=== PATIENT | female | born 1965 | race Caucasian/White ===

== ENCOUNTER 2024-02-05 08:07 | Emergency (ER) | payer SELFPAY ==
[2024-02-05 08:11] VITALS: BP 169/102; PULSE 53; RESP 16; O2SAT 95
--- NOTE | 2024-02-05 08:15 | DI.CT_ITS ---
Exam(s) CT HEAD CERVICAL SPINE WO EXAM: CT HEAD CERVICAL SPINE WO CLINICAL HISTORY: left sided head/neck pain s/p fall. TECHNIQUE: Imaging Protocol: Axial computed tomography images with coronal and sagittal reformatted images were created and reviewed COMPARISON: No exams were available for comparison FINDINGS: CT Head: Ventricles and Extra axial spaces: Normal in size and morphology for the patient's age. Hemorrhage: None. Cerebral parenchyma: No evidence of an acute territorial infarct. No mass effect is identified. Midline shift: None. Brainstem/Cerebellum: Normal. Calvarium: Normal. Visualized Paranasal sinuses/Mastoids: There is near complete opacification of the right maxillary si nus. The remaining visualized paranasal sinuses and mastoid air cells are clear. Soft Tissues: Unremarkable. CT Cervical Spine: Bones: No acute fracture or subluxation. Age-appropriate degenerative changes are seen in the cervica l spine. Soft Tissues: Unremarkable. Lung Apices: Clear. IMPRESSION: 1. No acute intracranial process. 2. No acute fracture or subluxation in the cervical spine. RADIATION DOSE DELIVERED: 1,357.92mGy.cm Total DLP DATA REPOSITORY: All CT scans at this facility are submitted to the National Radiology Data Registry (NRDR) Dose Index Registry (DIR) with the [employer] (ACR). RADIATION OPTIMIZATION: All CT scans at this facility use at least one of these dose optimization te chniques: automated exposure control; mA and/or kV adjustment per patient size (includes targeted exa ms where dose is matched to clinical indication); or iterative reconstruction.
--- NOTE | 2024-02-05 08:27 | ED.GENADUL_ITS ---
Discharge Plan Disposition Patient Disposition: Home Condition: Stable Discharge Details Clinical Impression: Contusion of rib, Cervical strain, Blunt head trauma, Closed fracture of phalanx of right little finger Primary Care Provider: Unknown,Unknown ED Provider: Waylon Rosenbaum Home Meds and New Rx's Prescriptions: Continued sertraline [Zoloft] 100 mg tablet 100 mg PO DAILY oxcarbazepine [Trileptal] 300 mg tablet 300 mg PO ONCE omeprazole 40 mg capsule,delayed release(DR/EC) 40 mg PO DAILY zinc 10 mg tablet 10 mg PO DAILY B-complex with vitamin C Tablet 1 tab PO DAILY Discharge Instructions Additional Instructions: If still having pain in the chest and neck in a week follow up with your primary care provider Call orthopedics to arrange for follow-up appointment You can take 1000 mg of acetaminophen and 600 mg of ibuprofen every 6 hours as needed If you feel more ill or have severe worsening pain or new symptoms such as severe abdominal pain return to the emergency department for reevaluation Referrals: Nithin Lombardo MD [ [facility] STAFF PHYSICIAN] - [facility] General Mode of arrival: ambulatory . Date/Time Provider Initiated Documentation: 02/05/24 08:08 . Limitations to Documentation: no limitations . Information obtained by: patient . History of Present Illness 58 year old F presents to the emergency department with the chief complaint of Fall out of b ed, described as moderate, and is localized to the head, neck, chest, right and upper extremity. Patient started experiencing this hour(s) (1) and it has been constant. No relieving factors improve symptom(s), No exacerbating factors reported . Patient notes denies fever/chills and shortness of breath. Patient did receive the following treatments prior to arrival, none Related Data Home Medications ?Medication ?Instructions ?Recorded ?Confirmed B-complex with vitamin C 1 tab PO DAILY 02/05/24 02/05/24 omeprazole 40 mg capsule,delayed 40 mg PO DAILY 02/05/24 02/05/24 release oxcarbazepine 300 mg tablet 300 mg PO ONCE 02/05/24 02/05/24 (Trileptal) sertraline 100 mg tablet (Zoloft) 100 mg PO DAILY 02/05/24 02/05/24 zinc 10 mg tablet 10 mg PO DAILY 02/05/24 02/05/24 Allergies Allergy/AdvReac Type Severity Reaction Status Date / Time No Known Allergies Allergy Unverified 02/05/24 08:14 General Stated Complaint: Trauma TOM: 3 Review of Systems All systems reviewed & are unremarkable except as noted in HPI and below Constitutional Constitutional: Denies chills, Denies fever(s) and Denies weakness Cardiovascular Cardiovascular: Reports chest pain (s/p fall) and Denies dyspnea Respiratory Respiratory: Denies cough and Denies dyspnea Gastrointestinal Gastrointestinal: Denies abdominal pain, Denies nausea and Denies vomiting Neurologic Neurologic: Denies weakness Exam Const General: no acute distress Orientation: alert HENMT Head: normal to inspection Ears: external ears normal General nose exam: external nose normal Mouth: moist mucous membranes Eyes General: appearance normal, both eyes and all related structures Neck Neck: normal visual inspection, no lymphadenopathy, trachea midline and no JVD Chest Chest: tenderness Resp Effort & Inspection: normal respiratory effort and able to speak in complete sentences Auscultation: clear to auscultation bilaterally Cardio Rate: regular rate Heart Sounds: no murmurs GI Palpation: soft and nontender Skin General skin exam: no rashes or lesions noted Neuro General: patient alert and patient oriented x3 Extrem General: normal to inspection Psych Mental Status: mental status grossly normal Course Vital Signs Vital signs: Vital Signs Pulse 53 L 02/05/24 08:11 Respiratory Rate 16 02/05/24 08:11 Blood Pressure 169/102 H 02/05/24 08:11 Pulse Oximetry 95 02/05/24 08:11 Pulse 53 L 02/05/24 08:11 Respiratory Rate 16 02/05/24 08:11 Respiratory Effort Normal 02/05/24 08:14 Blood Pressure 169/102 H 02/05/24 08:11 Blood Pressure Position Sitting 02/05/24 08:11 Pulse Oximetry 95 02/05/24 08:11 Oxygen Delivery Method Room Air 02/05/24 08:11 Oxygen Flow Rate 0 02/05/24 08:11 Pain Level 10 02/05/24 08:11 Medical Decision Making 58-year-old female comes in after she fell to bed. She says she was having a bed with a 6-year-old female member who accidentally knocked her out of the bed. She denies loss of consciousness or vomiting. She has left-sided head pain and neck pain since the fall. Also has left anterior chest tenderness. She also notes right little finger pain. She has no abdominal pain, no back pain. She is alert and oriented x 4 on arrival and ambulatory with a normal gait. She has no pain in her lower extremities. She has no signs of trauma to the head. She has tenderness over the left upper anterior chest. No crepitus, clear lung sounds. She has left lateral neck tenderness, no midline C-spine, T-spine or L- spine tenderness. No abdominal tenderness. Her right pinky is tender just distal to the PIP joint. She has full range of motion of the finger. Intact sensation and pulses. No tenderness in the rest of the hand or wrist. Suspect she has contusions but given her pain will obtain CT head and C-spine. Will also obtain a chest x-ray to evaluate for rib fracture. Will also obtain right pinky x-ray. CT head and C-spine on my review read read as negative for acute findings. X- ray of the chest shows no acute findings, vRad report does show a nondisplaced fracture of the pinky. She has no midline C-spine tenderness so do not feel any further imaging of her neck is indicated. She has full range of motion of her neck without any pain. She will follow-up with her PCP if not better within a week and return precautions given. For her finger I am going to provide her a finger splint and f/u with ortho. Differential Diagnosis Differential Diagnosis: Contusion, fracture, TBI Quality:SDOH Health Related Social Needs: No Data to Display [facility] All Active Problems (Updated 02/05/24 @ 09:58 by Waylon Rosenbaum MD) Closed fracture of phalanx of right little finger (Acute) Blunt head trauma (Acute) Cervical strain (Acute) Contusion of rib (Acute) Social History Smoking/Tobacco Use Status: Never Smoking risk assessment performed?: Yes Alcohol Intake: current Drug use: Daily Substance use type: marijuana Housing: house [employer] Have you Been Recently Intoxicated or Drunk Within the Last 30 days?: No Have you Ever Experienced Previous Episodes of Alcohol Withdrawal?: No Have you ever Experienced Withdrawal Seizures?: No Have you ever Experienced Delirium Tremens(DT)s?: No Have you ever undergone Alcohol Rehabilitation Treatment (i.e, inpt ot outpatient treatment programs)?: No Have you ever Experienced Blackouts?: No Have you ever Combined Alcohol with other Downers within the last 90 days?: No Have you ever Combined Alcohol with any other Substance of Abuse during the last 90 days?: No Result: 0
--- NOTE | 2024-02-05 09:02 | DI.RAD_ITS ---
Exam(s) XR FINGER RT LITTLE EXAM: XR FINGER RT LITTLE CLINICAL HISTORY: pain s/p fall. TECHNIQUE: 2D digital imaging was performed of the right finger. Three views were obtained. PA/AP, oblique, and lateral views were obtained. COMPARISON: No exams were available for comparison FINDINGS: BONES: There is an acute nondisplaced fracture through the proximal metaphysis of the distal phalanx of the right little finger. The fracture does not extend into the joint space. No bony destructive lesion is seen. JOINTS: No dislocation present. SOFT TISSUE: There is soft tissue swelling of the finger. No radiopaque foreign bodies are seen. IMPRESSION: Acute nondisplaced fracture through the proximal metaphyseal region of the distal phalanx of the righ t little finger. DATA REPOSITORY: RADIATION DOSE DELIVERED:
--- NOTE | 2024-02-05 09:02 | DI.RAD_ITS ---
Exam(s) XR CHEST 2V PA LATERAL EXAM: XR CHEST 2V PA LATERAL CLINICAL HISTORY: left sided chest pain s/p fall TECHNIQUE: 2D digital imaging was performed of the chest. Two images were obtained. PA and lateral views were obtained. COMPARISON: No exams were available for comparison FINDINGS: MEDIASTINUM: Normal. HEART: Normal. PULMONARY VASCULATURE: Normal. LUNGS: Clear. PLEURAL SPACE: No pleural effusion or pneumothorax. BONE:Within normal limits for the patient's age. There is mild right convex curvature of the thoraci c spine. No acute fractures are seen in the thoracic spine. There is mild anterior wedging of verte bral bodies at the thoraco lumbar junction which appear chronic OTHER FINDINGS:Normal. IMPRESSION: No acute pulmonary findings. DATA REPOSITORY: RADIATION DOSE DELIVERED:
--- NOTE | 2024-02-05 09:35 | DI.VRAD_ITS ---
PROCEDURE INFORMATION: Exam: CT Head Without Contrast Exam date and time: 02/05/2024 8:41 AM Age: 58 years old Clinical indication: Injury or trauma; Fall; Blunt trauma (contusions or hematomas); Consciousness not specified TECHNIQUE: Imaging protocol: Computed tomography of the head without contrast. COMPARISON: No relevant prior studies available. FINDINGS: Brain: There is no acute infarct, intracranial bleed or mass effect. There is mineralization of bilateral basal ganglia, age-related. Cerebral ventricles: No ventriculomegaly. Paranasal sinuses: Mucosal disease of the bilateral maxillary sinuses. Mastoid air cells: Visualized mastoid air cells are well aerated. Bones: Unremarkable. No acute fracture. Soft tissues: Unremarkable. IMPRESSION: No acute intracranial posttraumatic changes. PROCEDURE INFORMATION: Exam: CT Cervical Spine Without Contrast Exam date and time: 02/05/2024 8:41 AM Age: 58 years old Clinical indication: Injury or trauma; Fall; Blunt trauma (contusions or hematomas); Consciousness not specified TECHNIQUE: Imaging protocol: Computed tomography of the cervical spine without contrast. COMPARISON: No relevant prior studies available. FINDINGS: Bones: Mild posterior osteophyte disc complex at C5-C6 and C6-C7 with mild bony canal stenosis. Chronic fracture of the spinous process of T1. No compression deformity vertebral bodies. No acute fracture. No spondylolisthesis. Lungs: Lung apices are normal. Soft tissues: Unremarkable. IMPRESSION: No acute posttraumatic changes in the cervical spine. Dictated and Authenticated by: Darnell Melendez MD. Ordering:SANEDE Connors MD
--- NOTE | 2024-02-05 09:46 | DI.VRAD_ITS ---
PROCEDURE INFORMATION: Exam: XR Chest Exam date and time: 02/05/2024 8:54 AM Age: 58 years old Clinical indication: Injury or trauma; Fall; Other: Pain TECHNIQUE: Imaging protocol: Radiologic exam of the chest. Views: 2 views. COMPARISON: CT HEAD CERVICAL SPINE WO 02/05/2024 8:41 AM FINDINGS: Lungs: Unremarkable. No consolidation. Pleural spaces: Unremarkable. No pleural effusion. No pneumothorax. Heart/Mediastinum: Unremarkable. No cardiomegaly. Vasculature: Unfolding of the thoracic aorta. Bones/joints: Moderate degenerative bilateral acromioclavicular joints. Mild increased kyphosis of the lower thoracic spine with mild loss of height of the thoracolumbar junction vertebral bodies. Mild curvature of the thoracolumbar spine convex to the right. IMPRESSION: No acute cardiopulmonary process. Dictated and Authenticated by: Darnell Melendez MD. Ordering:SANDEE Connors MD
--- NOTE | 2024-02-05 09:49 | DI.VRAD_ITS ---
PROCEDURE INFORMATION: Exam: XR right Finger(s) Exam date and time: 02/05/2024 8:57 AM Age: 58 years old Clinical indication: Pain; Finger(s); Right TECHNIQUE: Imaging protocol: Radiologic exam of the left fingers. Views: Minimum 2 views. COMPARISON: No relevant prior studies available. FINDINGS: Bones/joints: Demineralization of the visualized bones. There is a transverse nondisplaced fracture of the proximal aspect of the phalanx of the small finger with no definite intra-articular extension. Soft tissues: Normal. IMPRESSION: Transverse fracture of the distal phalanx of the small finger with no intra-articular extension. Dictated and Authenticated by: Darnell Melendez MD. Ordering:SANDEE Connors MD
[2024-02-05 10:16] VITALS: BP 158/86; PULSE 49; RESP 16; O2SAT 98
== END 2024-02-05 10:18 | disposition home or self-care (01) ==
PROVIDERS: Emergency Provider Emergency Medicine
DX: S62.666A Nondisplaced fracture of distal phalanx of right little finger, initial encounter for closed fracture (principal); S16.1XXA Strain of muscle, fascia and tendon at neck level, initial encounter; S00.83XA Contusion of other part of head, initial encounter; R07.89 Other chest pain; W06.XXXA Fall from bed, initial encounter
CPT/HCPCS: 26720; 99284; 70450; 71046; 72125; 73140; 99283

== ENCOUNTER 2024-02-18 22:29 | Emergency (ER) | payer SELFPAY ==
[2024-02-18] VITALS (14 sets, daily range): BP systolic 125–155; BP diastolic 61–76; PULSE 51–80; RESP 0–25; TEMP 36.4; O2SAT 90–99
--- NOTE | 2024-02-18 22:30 | RT.EKG_ITS ---
APPROVED REPORT Exam: Resting ECG Reason for Exam: AMS Patient Location: E HR:51 bpm ECG Measurements Heart Rate 51 AXIS MN 221 P 65 QRSd 127 QRS -28 QT 516 T 46 QTc 477 Conclusion Sinus bradycardia...rate< 60 Prolonged MN interval...MN >210, V-rate 50- 90 IVCD, consider LBBB...QRSd>120, notch/slur R I aVL V5-[address] segment or T wave abnormalities to suggest occlusive AL
--- NOTE | 2024-02-18 22:30 | RT.EKG_ITS ---
APPROVED REPORT Exam: Resting ECG Reason for Exam: ams Patient Location: E HR:51 bpm ECG Measurements Heart Rate 51 AXIS TN 222 P 50 QRSd 125 QRS -31 QT 505 T 90 QTc 463 Conclusion Sinus bradycardia...rate< 60 Prolonged TN interval...TN >210, V-rate 50- 90 Slight QRS widening @[address] segment or T wave abnormalities to suggest occlusive CO
--- NOTE | 2024-02-18 22:58 | ED.GENADUL_ITS ---
Discharge Plan Disposition Patient Disposition: Home Condition: Good Discharge Details Clinical Impression: Alcohol intoxication, Altered mental status, Acute hypokalemia, Acidosis, lactic Primary Care Provider: Unknown,Unknown ED Provider: Adele Faulkner Home Meds and New Rx's Prescriptions: Continued sertraline [Zoloft] 100 mg tablet 100 mg PO DAILY oxcarbazepine [Trileptal] 300 mg tablet 300 mg PO ONCE omeprazole 40 mg capsule,delayed release(DR/EC) 40 mg PO DAILY zinc 10 mg tablet 10 mg PO DAILY B-complex with vitamin C Tablet 1 tab PO DAILY Discharge Instructions Instructions: Hypokalemia, Alcohol Intoxication ED Additional Instructions: Call your primary care doctor today to schedule an appointment to be seen within the next 72 hours to followup on your visit here. At that appointment discuss your potassium which was low here today, your EKG which showed some changes, and your toxicology results which are not back yet. Return to the emergency department for new or worsening symptoms, including altered mental status, numbness, weakness, vertigo, vision changes, chest pain, shortness of breath, feeling like you are going to pass out, or if you have any other concerns. HPI General Mode of arrival: EMS . Date/Time Provider Initiated Documentation: 02/18/24 22:37 . Limitations to Documentation: no limitations . Information obtained by: patient, family and EMS . HPI Narrative: 58yo F with hx of depression and anxiety presenting for altered mental status. [facility], reports drinking 2 vodka drinks as well as smoking weed; states this is not unusual for her. Came home and per family was initially crying and seemed agitated, then became less responsive. For EMS she was responsive to painful stimuli, moving all 4 extremities, blood glucose and vital signs normal. Patient and family concerned that someone may have tampered with her drink. Patient denies any other ingestions or changes in medications. She reports feeling funny all over, denies focal numbness or weakness. No headache, nausea, vomiting, vision changes, or vertigo. No chest pain, syncope, or shortness of breath. She is otherwise in her usual state of health with no fevers, chills, rash, abdominal pain, dysuria, hematuria, recent head injuries, or other concerns. Related Data Home Medications ?Medication ?Instructions ?Recorded ?Confirmed B-complex with vitamin C 1 tab PO DAILY 02/05/24 02/18/24 omeprazole 40 mg capsule,delayed 40 mg PO DAILY 02/05/24 02/18/24 release oxcarbazepine 300 mg tablet 300 mg PO ONCE 02/05/24 02/18/24 (Trileptal) sertraline 100 mg tablet (Zoloft) 100 mg PO DAILY 02/05/24 02/18/24 zinc 10 mg tablet 10 mg PO DAILY 02/05/24 02/18/24 Allergies Allergy/AdvReac Type Severity Reaction Status Date / Time No Known Allergies Allergy Unverified 02/18/24 22:39 General Stated Complaint: AMS/LOC TOM: 3 Review of Systems Narrative: see HPI Exam Narrative Exam Narrative: General: Eyes closed, well nourished, in no acute distress. Head: Normocephalic, atraumatic Neck: Trachea midline, ?Neck supple. ENT: ?MMM.? No oropharygeal lesions or exudate. Cardiac: ?RRR, no murmurs appreciated Resp: No respiratory distress. CTAB. Abd: ?Soft, non-distended, nontender : ?No suprapubic tenderness. No CVA tenderness. Extremities: ?No deformities.? No peripheral edema. Neuro: ? GCS 14 (E3 V5 M6).? PERRL, mydriasis.? EOMI.? Fluent speech, no dysarthria. Motor- 5/5 strength symmetric bilateral upper and lower extremities Sensation- ?Intact to light touch and symmetric multiple dermatomes including upper and lower extremities Coordination- No dysmetria on finger to nose CRANIAL NERVES: II: Pupils equal and reactive, III, IV, : EOM intact, no gaze preference or deviation, no nystagmus. V: normal sensation in V1, V2, and V3 segments bilaterally VII: no asymmetry, no nasolabial fold flattening VIII: normal hearing to speech IX, X: normal palatal elevation, no uvular deviation XI: 5/5 head turn and 5/5 shoulder shrug bilaterally XII: midline tongue protrusion Course Vital Signs Vital signs: Vital Signs Temperature 36.4 C L 02/18/24 22:32 Pulse 62 02/18/24 22:32 Respiratory Rate 18 02/18/24 22:32 Blood Pressure 125/61 02/18/24 22:32 Pulse Oximetry 94 10/12/24 22:32 Temperature 36.4 C L 02/18/24 22:32 Temperature Source Oral 02/18/24 22:32 Pulse 62 02/18/24 22:32 Respiratory Rate 18 02/18/24 22:39 Respiratory Effort Normal 02/18/24 22:39 Respiratory Depth Normal 02/18/24 22:39 Respiratory Pattern Normal 02/18/24 22:39 Blood Pressure 125/61 02/18/24 22:32 Blood Pressure Position Supine 02/18/24 22:32 Pulse Oximetry 94 02/18/24 22:32 Oxygen Delivery Method Nasal Cannula 02/18/24 22:32 Oxygen Flow Rate 1 02/18/24 22:32 Medical Decision Making 58yo F with hx of depression and anxiety presenting for altered mental status. Was at bar [employer], reports drinking 2 vodka drinks as well as smoking weed; states this is not unusual for her. After returning home was initially crying, then became less responsive so family called EMS. Family states they have never seen her like this before. For EMS she was responsive to painful stimuli, moving all 4 extremities, blood glucose and vital signs normal. On arrival is responsive to loud voice, oriented x 3, GCS 14. Mydriasis on exam, otherwise normal physical and neurologic exam. Patient and family are concerned that someone may have tampered with her drink; patient denies any other ingestions or changes in medications. -Initial EKG SR with 1st degree block, nonspecific IVCD with QRS of 125 (? partial LBBB), no ST segment or T wave abnormalities to suggest occlusive [place]. No prior EKGs available for comparison. -CT head independently reviewed; no intracranial bleed or mass on my view, radiology read below. -Labs reviewed as below, CBC reassuring with no leukocytosis or anemia, CMP with hypokalemia at 3.0 (given 40meQ oral and 20meQ IV) otherwise no actionable abnormalities, Mg normal, TSH normal, salicylate negative, acetaminophen negative, ETOH markedly elevated at 135. Lactate elevated at 2.6 (possibly 2/t to ETOH); given 1L IFVB and repeat improved to 1.5. VBG drawn 1 hour after arrival, pH of 7.3 with bicarb of 15 at that time with compensatory respiratory alkalosis (this may be 2/t to ETOH). Troponin negative x 2; would not further pursue ACS. -UDS + for THC. Rohypnol, GHB, ketamine sent out, patient and family aware results will not be available tonight and they will need to followup with her PCP. -Repeat EKG with no significant changes, QRS ~127. On reassessment patient awake, alert, sitting up in bed and looking at her phone. Vital signs reamin reassuring. Discussed with poison control who agree pt's presentation and lab abnormalities are most likely 2/t ETOH, no further interventions recommended. Repeat labs after completion of IV potassium: VBG improving with bicarb near normal at 23, normal pCO2, pH 7.31. Repeat lactate up to 2.0 which I do believe is 2/t to her ETOH, BMP with potassium of 4.3 and otherwise reassuring, tylenol/salicylate negative. EKG with QRS 107. Discussed again with poison control who agree lab findings including lactate, VBG, not unexpected in the setting of ETOH and not of significant concern, no additional recommendations, no indication for further monitoring. On reassessment patient alert, oriented, ambulates with steady gait. Discharged home; discharge instructions and return precautions were reviewed with patient who verbalized understanding. All questions were answered and she is in full agreement with the plan. Imaging Data Radiologic Study: Imaging: CT Scan Radiologist's impression: IMPRESSION: 1. Incompletely visualized opacification of the right maxillary sinus suggests sinusitis. 2. No acute brain findings Quality:SDOH Health Related Social Needs: No Data to Display [facility] All Active Problems (Updated 02/19/24 @ 03:04 by Adele Faulkner MD) Acidosis, lactic (Acute) Acute hypokalemia (Acute) Altered mental status (Acute) Alcohol intoxication (Acute) Closed fracture of phalanx of right little finger (Acute) Blunt head trauma (Acute) Cervical strain (Acute) Contusion of rib (Acute) Social History Smoking/Tobacco Use Status: Never Smoking risk assessment performed?: Yes Alcohol Intake: current Drug use: Daily Substance use type: marijuana Housing: house
[2024-02-18 23:06] LABS: Abs Immature Grans 0.02 10^3/uL (0.0-0.06); Absolute Basophil Count 0.04 10^3/uL (0.0-0.2); Absolute Eosinophil Count 0.14 10^3/uL (0.0-0.7); Absolute Lymphocyte Count 2.59 10^3/uL (1.2-3.4); Absolute Monocyte Count 0.34 10^3/uL (0.1-0.8); Absolute Neutrophil Count 4.27 10^3/uL (1.2-6.7); Basophils % 0.5 %; Eosinophils % 1.9 %; HCT 37.3 % (36.0-46.0); Immature Grans % 0.3 %; Lactate 2.6 mmol/L (0.6-1.4); MCH 27.5 pg (27.0-33.0); MCHC 32.2 % (32.0-36.0); MCV 86 fL (80-95); MPV 9.8 fL (8.0-11.0); Monocytes % 4.6 %; Neutrophils % 57.7 %; Platelet Count 173 10^3/uL (130-400); RBC 4.36 10^6/uL (3.93-5.22); RDW 13.7 % (11.7-14.6); RDW-SD 42.8 fL
[2024-02-18 23:24] LABS: Salicylate < 2.8 mg/dL (<2.8)
[2024-02-18 23:32] LABS: Acetaminophen < 2 ug/mL (10-30)
--- NOTE | 2024-02-18 23:35 | DI.CT_ITS ---
Exam(s) CT HEAD WO EXAM: CT HEAD WO CLINICAL HISTORY: AMS, GCS 13-14, no focal deficit, atraumatic. TECHNIQUE: Imaging Protocol: Axial computed tomography images with coronal and sagittal reformatted images were created and reviewed COMPARISON: CT CT HEAD CERVICAL SPINE WO from 02/05/2024 FINDINGS: There are no skull fractures. There is mucosal thickening in the right maxillary sinus again noted. Other paranasal sinuses are clear, as are the mastoid air cells. There is no evidence of intracranial hemorrhage, mass effect, or shift of midline structures. There are no extra-axial fluid collections. The ventricles are not enlarged or shifted and there is no blo od within the ventricular system nor within the basal cisterns. IMPRESSION: No acute intracranial findings on this noninfused CT scan of the brain. Mucosal thickening in the floor of the right maxillary sinus is again noted. RADIATION DOSE DELIVERED: 869.58mGy.cm Total DLP DATA REPOSITORY: All CT scans at this facility are submitted to the National Radiology Data Registry (NRDR) Dose Index Registry (DIR) with the [employer] (A[employer]). RADIATION OPTIMIZATION: All CT scans at this facility use at least one of these dose optimization te chniques: automated exposure control; mA and/or kV adjustment per patient size (includes targeted exa ms where dose is matched to clinical indication); or iterative reconstruction.
[2024-02-18 23:53] LABS: ALT 19 U/L (14-59); AST 17 U/L (15-37); Albumin 3.5 g/dL (3.4-5.0); Alkaline Phosphatase 69 U/L (46-116); Anion Gap 12.3 mmol/L (3-11); BUN 26 mg/dL (7-18); Bilirubin, Total 0.14 mg/dL (0.2-1.0); CO2 24.7 mmol/L (21.0-32.0); CREATININE 0.8 mg/dL (0.55-1.02); Calcium 8.7 mg/dL (8.5-10.1); Chloride 107 mmol/L (98-107); ETHANOL BLOOD 135.8 mg/dL (<10); Estimated GFR 85.89 (mL/min/1.73m2); Glucose 113 mg/dL (74-106); Sodium 144 mmol/L (136-145); TSH (W/Ref FT4) 2.87 uIU/mL (0.36-3.74); Total Protein 6.9 g/dL (6.4-8.2); Troponin I 7 ng/L (<or=51)
[2024-02-19] VITALS (13 sets, daily range): BP systolic 125–174; BP diastolic 59–84; PULSE 50–57; RESP 14–25; TEMP 36.5; O2SAT 78–99
[2024-02-19] MEDS: Normal Saline 1,000 ML 1000 ML IV
[2024-02-19 00:14] LABS: Troponin I 8 ng/L (<or=51)
[2024-02-19] MEDS: Potassium Chloride Liquid 20 MEQ PKT 40 MEQ PO (00:30)
[2024-02-19] MEDS: POTASSIUM CHLORIDE 20 MEQ/100 ML BAG 50 MEQ IV_INF (00:31)
[2024-02-19 00:57] LABS: *AMPHETAMINES SCREEN URINE Negative (Negative); *BARBITURATES SCREEN URINE Negative (Negative); *BENZODIAZEPINES SCREEN URINE Negative (Negative); Cannabinoids THC Positive (Negative); Cocaine Screen,Urine Negative (Negative); METHADONE URINE SCREEN Negative (Negative); OPIATES URINE SCREEN Negative (Negative)
[2024-02-19 01:02] LABS: Tricyclic Antidepressants Negative (Negative)
[2024-02-19 01:06] LABS: BE (Venous) -12 mmol/L (-2-3); HCO3 (Venous) 15 mmol/L (23-28); O2 Sat (Venous) 86 %; TCO2 (Venous) 15 mmol/L (24-29); pCO2 (Venous) 31 mmHg (41-51); pO2 (Venous) 52 mmHg
[2024-02-19 01:07] LABS: Lactate 1.5 mmol/L (0.6-1.4)
--- NOTE | 2024-02-19 01:33 | DI.VRAD_ITS ---
PROCEDURE INFORMATION: Exam: CT Head Without Contrast Exam date and time: 02/18/2024 11:30 PM Age: 58 years old Clinical indication: Altered mental status/memory loss; Confusion or disorientation; Patient HX: AMS, gcs 13-14, no focal deficit, atraumatic TECHNIQUE: Imaging protocol: Computed tomography of the head without contrast. Radiation optimization: All CT scans at this facility use at least one of these dose optimization techniques: automated exposure control; mA and/or kV adjustment per patient size (includes targeted exams where dose is matched to clinical indication); or iterative reconstruction. COMPARISON: CT HEAD CERVICAL SPINE WO 02/05/2024 8:41 AM FINDINGS: Brain: No brain edema. No intracranial hemorrhage. Cerebral ventricles: No ventriculomegaly. Paranasal sinuses: Incompletely visualized opacification of the right maxillary sinus suggests sinusitis. Mastoid air cells: Unremarkable. Bones: Unremarkable. No acute fracture. Soft tissues: Unremarkable. IMPRESSION: 1. Incompletely visualized opacification of the right maxillary sinus suggests sinusitis. 2. No acute brain findings. Dictated and Authenticated by: Hitesh Ragland MD. Ordering:JEMAL Angulo MD
[2024-02-19 01:34] LABS: Potassium 4.2 mmol/L (3.5-5.1)
--- NOTE | 2024-02-19 02:00 | RT.EKG_ITS ---
APPROVED REPORT Exam: Resting ECG Reason for Exam: altered mental status Patient Location: E HR:52 bpm ECG Measurements Heart Rate 52 AXIS TN 224 P 33 QRSd 107 QRS -35 QT 500 T 72 QTc 467 Conclusion Sinus bradycardia...rate< 60 Prolonged TN interval...TN >210, V-rate 50- [address] segment or T wave abnormalitites to suggest occlusive NE
[2024-02-19 02:23] LABS: BE (Venous) -2 mmol/L (-2-3); HCO3 (Venous) 25 mmol/L (23-28); O2 Sat (Venous) 62 %; TCO2 (Venous) 23 mmol/L (24-29); pCO2 (Venous) 49 mmHg (41-51); pH (Venous) 7.31 (7.31-7.41); pO2 (Venous) 35 mmHg
[2024-02-19 02:37] LABS: Anion Gap 8.6 mmol/L (3-11); BUN 23 mg/dL (7-18); CO2 25.4 mmol/L (21.0-32.0); CREATININE 0.7 mg/dL (0.55-1.02); Calcium 8.7 mg/dL (8.5-10.1); Chloride 110 mmol/L (98-107); Estimated GFR 100.81 (mL/min/1.73m2); Glucose 106 mg/dL (74-106); Potassium 4.3 mmol/L (3.5-5.1); Sodium 144 mmol/L (136-145)
[2024-02-19 02:46] LABS: Acetaminophen < 2 ug/mL (10-30); Salicylate < 2.8 mg/dL (<2.8)
--- NOTE | 2024-02-19 07:10 | NUR.NOTE ---
Access chart to reconcile EKG orders with EKG's in [facility]. Duplicate order cancelled. Nursing Note:
[2024-03-02 09:00] LABS: Norketamine None Detected
[2024-03-02 09:04] LABS: Ketamine None Detected
[2024-03-02 09:52] LABS: Misc Referral (MAYO) See Comments
== END 2024-02-19 03:36 | disposition home or self-care (01) ==
PROVIDERS: Emergency Provider Student in an Organized Health Care Education/Training Program
DX: R41.82 Altered mental status, unspecified (principal); F10.120 Alcohol abuse with intoxication, uncomplicated; E87.20 Acidosis, unspecified; R94.31 Abnormal electrocardiogram [ECG] [EKG]
CPT/HCPCS: 80048; 80053; 80307; 80346; 82805; 82962; 93005; 96361; 96365; 96366; 99285; 70450; 80299; 80320; 80329; 83605; 83735; 84132; 84443; 84484; 85025; 93010; 99284; J3480

== ENCOUNTER 2024-07-18 20:39 | Emergency (ER) | payer OTHER, SELFPAY ==
[2024-07-18 20:43] VITALS: BP 154/98; PULSE 69; RESP 18; TEMP 36.6; O2SAT 96
--- NOTE | 2024-07-18 20:45 | DI.RAD_ITS ---
Exam(s) XR FOREARM RT XR WRIST RT COMPLETE EXAM: XR WRIST RT COMPLETE and XR forearm right CLINICAL HISTORY: Fall, Deformity. TECHNIQUE: 2D digital imaging was performed of the right forearm and wrist. Five views were obtaine d. PA, lateral and oblique views were obtained. COMPARISON: CR,XR XR FINGER RT LITTLE from 02/05/2024 FINDINGS: BONES: There is an acute comminuted intra-articular fracture of the distal radius. The fracture show s mild impaction and mild dorsal angulation. There is also a nondisplaced oblique fracture through t he base of the ulnar styloid process. No bony destructive lesion is seen. JOINTS: The carpal bones are normally aligned. The visualized elbow is intact. SOFT TISSUE: Soft tissue swelling around the wrist is noted. IMPRESSION: 1. Comminuted intra-articular fracture of the distal radius with dorsal angulation. 2. Nondisplaced fracture through the base of the ulnar styloid process. DATA REPOSITORY: RADIATION DOSE DELIVERED:
--- NOTE | 2024-07-18 21:00 | W.ED.GENAD ---
Discharge Plan Disposition Patient Disposition: Home Condition: Stable Discharge Details Clinical Impression: Colles' fracture of right radius, Fracture of right ulna Primary Care Provider: Unknown,Unknown ED Provider: Kathleen Jordan Home Meds and New Rx's Prescriptions: Continued albuterol sulfate 90 mcg/actuation HFA aerosol inhaler 2 puff inhalation Q6H PRN (Reason: shortness of breath or wheezing) Qty: 8.5 0RF sertraline [Zoloft] 100 mg tablet 100 mg PO DAILY oxcarbazepine [Trileptal] 300 mg tablet 300 mg PO ONCE omeprazole 40 mg capsule,delayed release(DR/EC) 40 mg PO DAILY zinc 10 mg tablet 10 mg PO DAILY B-complex with vitamin C Tablet 1 tab PO DAILY cholecalciferol (vitamin D3) [Vitamin D3] 50 mcg (2,000 unit) tablet 50 mcg PO DAILY calcium carbonate-vitamin D3 [Calcium 600 with Vitamin D3] 600 mg-12.5 mcg (500 unit) capsule 1 cap PO DAILY multivitamin,gx-xkpt-kbeonyeo Tablet 1 tab PO DAILY potassium 99 mg tablet 99 mg PO DAILY Discharge Instructions Instructions: Colles' Fracture (DC), How to care for a splint Additional Instructions: You have broken your wrist and the distal tip of your ulna. Please follow-up with orthopedics within the next week. Their office should call you for an appointment if you do not hear from them in the next 2 to 3 days please give them a call. Keep your splint on, do not get it wet. Rest ice elevation when sitting or lying down. You may loosen the Horace wrap if it feels too tight but do not take the splint off. Return to the ER for any pain not relieved by loosening the Horace wrap, not relieved by Tylenol ibuprofen problems with circulation or concerns. Thank you for allowing us to care for you today. Stand Alone Forms: Work Release Referrals: Ronald Barber MD [ [facility] ST[facility]FF PHYSICIAN] - 1 week HPI General Mode of arrival: ambulatory. Date/Time Provider Initiated Documentation: 07/18/24 20:48. Limitations to Documentation: no limitations. Information obtained by: patient, RN notes reviewed and old records reviewed. HPI Narrative: 58-year-old female presents to the ER after a mechanical slip and fall on the ice landing forward while getting into her car. She has right wrist and forearm pain. She does have a obvious deformity distal CMS is intact. She reports radiation of the pain up her arm. Denies any neck or back pain did not hit her head. Did not take any medications prior to arrival. She does have a past medical history of GERD, depression. Related Data Home Medications ?Medication ?Instructions ?Recorded ?Confirmed B-complex with vitamin C 1 tab PO DAILY 02/05/24 07/18/24 omeprazole 40 mg capsule,delayed 40 mg PO DAILY 02/05/24 07/18/24 release oxcarbazepine 300 mg tablet 300 mg PO ONCE 02/05/24 07/18/24 (Trileptal) sertraline 100 mg tablet (Zoloft) 100 mg PO DAILY 02/05/24 07/18/24 zinc 10 mg tablet 10 mg PO DAILY 02/05/24 07/18/24 albuterol sulfate 90 mcg/actuation 2 puff inhalation Q6H PRN 06/15/24 07/18/24 aerosol inhaler shortness of breath or wheezing #8.5 grams calcium 600 mg (as 1 cap PO DAILY 07/18/24 07/18/24 carbonate)-vitamin D3 12.5 mcg (500 unit) capsule (Calcium with Vit D3) cholecalciferol (vitamin D3) 50 50 mcg PO DAILY 07/18/24 07/18/24 mcg (2,000 unit) tablet (Vitamin D3) multivitamin,ys-spfe-avvfvdnu 1 tab PO DAILY 07/18/24 07/18/24 potassium 99 mg tablet 99 mg PO DAILY 07/18/24 07/18/24 Previous Rx's ?Medication ?Instructions ?Recorded albuterol sulfate 90 mcg/actuation 2 puff inhalation Q6H PRN 06/15/24 aerosol inhaler shortness of breath or wheezing #8.5 grams Allergies Allergy/AdvReac Type Severity Reaction Status Date / Time No Known Allergies Allergy Unverified 07/18/24 20:59 General Stated Complaint: Orthopedic TOM: 3 Review of Systems Musculoskeletal Musculoskeletal: Reports arthralgias and Reports joint swelling Exam Const General: cooperative Nutritional Appearance: obese Orientation: alert, awake and oriented x3 Resp Effort & Inspection: normal respiratory effort and able to speak in complete sentences Auscultation: clear to auscultation bilaterally Cardio Rate: regular rate Rhythm: regular rhythm Heart Sounds: S1 normal and S2 normal Extrem Right upper extremity: shoulder/upper arm Details: normal to inspection; no tenderness, elbow/forearm and wrist Details: abnormal to inspection, tenderness, swelling, deformity and radial pulse present Course Vital Signs Vital signs: Vital Signs Temperature 36.6 C 07/18/24 20:43 Pulse 69 07/18/24 20:43 Respiratory Rate 18 07/18/24 20:43 Blood Pressure 154/98 H 07/18/24 20:43 Pulse Oximetry 96 07/18/24 20:43 Temperature 36.6 C 07/18/24 20:43 Temperature Source Temporal Artery Scan 07/18/24 20:43 Pulse 69 07/18/24 20:43 Respiratory Rate 18 07/18/24 20:43 Blood Pressure 154/98 H 07/18/24 20:43 Blood Pressure Position Sitting 07/18/24 20:43 Pulse Oximetry 96 07/18/24 20:43 Oxygen Delivery Method Room Air 07/18/24 20:43 Oxygen Flow Rate 0 07/18/24 20:43 Pain Level 10 07/18/24 20:47 Procedure Joint Reduction Joint #1: Date of Procedure: 07/18/24 Time of procedure: 22:01 Provider that performed the procedure: Kathleen Jordan Standard Time Out Performed: Yes Patient Consented: Verbally Joint reduction location: wrist Technique Used: direct manipulation Post-Reduction Neuro Exam: intact Post-Reduction Vascular Exam: intact Post Reduction X-Ray Obtained: Yes Post Reduction X-Ray Results: reduced Splint Applied: Yes (Sugar-tong plaster splint) Patient Tolerated Procedure: well Nerve Block 1st Nerve Block: Date of Procedure: 07/18/24 Time of procedure: 21:38 Provider that performed the procedure: Kathleen Jordan Indication: Procedural Standard Time Out Performed: Yes Patient Consented: Verbally Pre Procedure Medication: Other (Percocet) Local Anesthetic: Lidocaine 1% Amount of anethetic used(mL): 10 Sterility: Non Sterile Laterality: Right Nerve Blocks: hematoma block Ultrasound: Not used. Needle Length: Other (22ga 1.5 in) Procedure Tolerated: No Complications and Patient tolerated well Procedure Outcome: Successful Medical Decision Making 58-year-old female presents to the ER after a mechanical slip and fall on the ice landing forward while getting into her car. She has right wrist and forearm pain. She does have a obvious deformity distal CMS is intact. She reports radiation of the pain up her arm. Denies any neck or back pain did not hit her head. Did not take any medications prior to arrival. She does have a past medical history of GERD, depression. X-ray right wrist and forearm ordered, Zofran and Percocet. Hematoma block given, anesthesia achieved. See procedure note. 1% lidocaine and injected into the right wrist dorsally to the hematoma. Joint reduction with manual manipulation, postreduction x-ray ordered. Plaster splint sugar-tong applied. Horace wrap. Distal CMS intact post application. Postreduction x-ray shows successful reduction near anatomic alignment. Patient placed on orthopedic follow-up list. Discussed home care and follow-up care verbalized understanding. This text was generated using [employer] system, please disregard any oddities of phrase or misspellings. Imaging Data Radiologic Study: Imaging: X-Ray Radiologist's impression: TECHNIQUE: Imaging protocol: Radiologic exam of the right wrist. Views: 3 or more views. COMPARISON: CR XR FINGER RT LITTLE 02/05/2024 8:57 AM FINDINGS: Bones/joints: Comminuted dorsally displaced fracture through the distal radius (Colles fracture). Nondisplaced fracture through the ulnar styloid. Soft tissues: Moderate diffuse soft tissue edema. IMPRESSION: 1. Comminuted dorsally displaced fracture through the distal radius (Colles fracture). 2. Nondisplaced fracture through the ulnar styloid. Thank you for allowing us to participate in the care of your patient. Dictated and Authenticated by: Rossy Ivy MD Radiologic Study #2: Imaging: X-Ray Radiologist's impression: TECHNIQUE: Imaging protocol: Radiologic exam of the right wrist. Views: 1 or 2 views. COMPARISON: CR XR WRIST RT COMPLETE 07/18/2024 9:11 PM FINDINGS: Bones/joints: Again seen are distal radius fracture and ulnar styloid fracture, the fracture fragments are in near anatomical malalignment postreduction. Soft tissues: Normal. Other findings: Interval addition cast. IMPRESSION: Again seen are distal radius fracture and ulnar styloid fracture, the fracture fragments are in near anatomical malalignment postreduction. Thank you for allowing us to participate in the care of your patient. Dictated and Authenticated by: Rossy Ivy MD Quality:SDOH Health Related Social Needs: No Data to Display PFSH All Active Problems (Updated 07/18/24 @ 22:23 by Kathleen Jordan NP) Fracture of right ulna (Acute) Colles' fracture of right radius (Acute) Social History Smoking/Tobacco Use Status: Never Smoking risk assessment performed?: Yes Alcohol Intake: current Drug use: Occasionally Substance use type: marijuana Housing: house Do you feel safe at home: Yes Do you feel safe in your relationship?: Yes
[2024-07-18] MEDS: Ondansetron O.D.T. 4 MG TABEF PO (21:04)
[2024-07-18] MEDS: oxyCODONE 5 mg/Acetaminophen 325 mg TAB 1 TAB PO (21:04)
--- NOTE | 2024-07-18 22:04 | DI.VRAD_ITS ---
PROCEDURE INFORMATION: Exam: XR Right Wrist Exam date and time: 07/18/2024 9:11 PM Age: 58 years old Clinical indication: Injury or trauma; Fall; Other: Deformity, ? fracture TECHNIQUE: Imaging protocol: Radiologic exam of the right wrist. Views: 3 or more views. COMPARISON: CR XR FINGER RT LITTLE 02/05/2024 8:57 AM FINDINGS: Bones/joints: Comminuted dorsally displaced fracture through the distal radius (Colles fracture). Nondisplaced fracture through the ulnar styloid. Soft tissues: Moderate diffuse soft tissue edema. IMPRESSION: 1. Comminuted dorsally displaced fracture through the distal radius (Colles fracture). 2. Nondisplaced fracture through the ulnar styloid. Dictated and Authenticated by: Rossy vIy MD. Orderin Nikki Wang MD
--- NOTE | 2024-07-18 22:05 | DI.VRAD_ITS ---
PROCEDURE INFORMATION: Exam: XR Right Forearm Exam date and time: 07/18/2024 9:16 PM Age: 58 years old Clinical indication: Injury or trauma; Fall; Other: Deformity, ? fracture TECHNIQUE: Imaging protocol: Radiologic exam of the right forearm. Views: 2 views. COMPARISON: CR XR WRIST RT COMPLETE 07/18/2024 9:11 PM FINDINGS: Bones/joints: Comminuted impacted dorsally displaced fracture through the distal radial shaft (Colles fracture). Nondisplaced ulnar styloid fracture. Soft tissues: Diffuse soft tissue edema. IMPRESSION: 1. Comminuted impacted dorsally displaced fracture through the distal radial shaft (Colles fracture). 2. Nondisplaced ulnar styloid fracture. Dictated and Authenticated by: Rossy Ivy MD. Orderin Nikki Wang MD
--- NOTE | 2024-07-18 22:19 | DI.RAD_ITS ---
Exam(s) XR WRIST RT LIMITED EXAM: XR WRIST RT LIMITED CLINICAL HISTORY: post reduction. TECHNIQUE: 2D digital imaging was performed of the right wrist. Two views were obtained. PA and la teral views were obtained. COMPARISON: CR,XR XR WRIST RT COMPLETE from 07/18/2024 FINDINGS: BONES: There is again seen a comminuted intra-articular fracture of the distal radius. There has bee n reduction the fracture which is now near anatomic in alignment. The nondisplaced ulnar styloid pro cess fracture is less well visualized on the current examination. This is due to patient positioning . JOINTS: The carpal bones are normally aligned. SOFT TISSUE: Normal. IMPRESSION: There is again seen a comminuted intra-articular fracture of the distal radius. The fracture has bee n reduced and is now near anatomic in alignment. DATA REPOSITORY: RADIATION DOSE DELIVERED:
--- NOTE | 2024-07-18 22:22 | DI.VRAD_ITS ---
PROCEDURE INFORMATION: Exam: XR Right Wrist Exam date and time: 07/18/2024 10:18 PM Age: 58 years old Clinical indication: Other: Post reduction TECHNIQUE: Imaging protocol: Radiologic exam of the right wrist. Views: 1 or 2 views. COMPARISON: CR XR WRIST RT COMPLETE 07/18/2024 9:11 PM FINDINGS: Bones/joints: Again seen are distal radius fracture and ulnar styloid fracture, the fracture fragments are in near anatomical malalignment postreduction. Soft tissues: Normal. Other findings: Interval addition cast. IMPRESSION: Again seen are distal radius fracture and ulnar styloid fracture, the fracture fragments are in near anatomical malalignment postreduction. Dictated and Authenticated by: Rossy Ivy MD. Orderin Nikki Wang MD
[2024-07-19 02:16] VITALS: BP 154/98; PULSE 69; RESP 18; TEMP 36.6; O2SAT 96
--- NOTE | 2024-07-21 08:21 | NUR.NOTE ---
Access chart to get the discharge diagnosis for [facility] billing requisition. Nursing Note:
== END 2024-07-18 22:33 | disposition home or self-care (01) ==
LOC: ER 22:36
PROVIDERS: Emergency Provider Registered Nurse Emergency
DX: S52.531A Colles' fracture of right radius, initial encounter for closed fracture (principal); S52.614A Nondisplaced fracture of right ulna styloid process, initial encounter for closed fracture; W00.0XXA Fall on same level due to ice and snow, initial encounter
CPT/HCPCS: 25565; 99284; 73090; 73100; 73110; 99283

== ENCOUNTER 2024-07-20 11:36 | Day surgery (SDC) | payer OTHER, SELFPAY ==
[2024-07-20] VITALS (20 sets, daily range): BP systolic 94–128; BP diastolic 32–80; PULSE 56–73; RESP 10–23; TEMP 36.3–37.1; O2SAT 92–97; BMI 43.4
--- NOTE | 2024-07-20 07:22 | W.PM.DSUDISC ---
Date of service: 07/20/24 Discharge Plan Disposition Patient Disposition: Home Condition: Stable Discharge Details Attending Provider: Ronald Barber Primary Care Provider: None,None Home Meds and New Rx's Prescriptions: New naproxen 250 mg tablet 250 - 500 mg PO BID PRN (Reason: moderate pain and swelling) Qty: 40 0RF oxycodone 5 mg tablet 5 - 10 mg PO .q4-6h MDD 30 mg PRN (Reason: severe pain) Qty: 18 0RF Continued atorvastatin 40 mg tablet 40 mg PO DAILY sertraline [Zoloft] 100 mg tablet 100 mg PO DAILY oxcarbazepine [Trileptal] 300 mg tablet 300 mg PO ONCE omeprazole 40 mg capsule,delayed release(DR/EC) 40 mg PO DAILY zinc 10 mg tablet 10 mg PO DAILY B-complex with vitamin C Tablet 1 tab PO DAILY cholecalciferol (vitamin D3) [Vitamin D3] 50 mcg (2,000 unit) tablet 50 mcg PO DAILY calcium carbonate-vitamin D3 [Calcium 600 with Vitamin D3] 600 mg-12.5 mcg (500 unit) capsule 1 cap PO DAILY multivitamin,uq-jynj-gdfvwoyj Tablet 1 tab PO DAILY potassium 99 mg tablet 99 mg PO DAILY Discharge Instructions Additional Instructions: Surgery: Right wrist closed reduction with manipulation under anesthesia 07/20/24 Activity: Non-weightbearing right wrist. Recommend elevation to minimize swelling discomfort. Encourage range of motion- wiggle all fingers and thumb to prevent stiffness. You may use thumb and fingers gently. Prescriptions: Naproxen 250 mg take 1-2 every 12 hours with a meal as needed for moderate pain Oxycodone 5 mg take 1-2 every 4-6 hours as needed for severe pain You may use [id number] Tylenol (acetaminophen) as needed for mild pain. These pain medications may be taken all at once or in different combinations as needed. Also, recommend Colace (docusate) as a stool softener as surgery and pain medicine cause constipation. You may try dzrt-[id number] diphenhydramine (Benadryl) 25-50 mg nightly as a sleep aid Dressings: Leave splint in place until follow-up. Keep clean and dry at all times. May adjust Horace bandage as needed for swelling and tightness. May add padding about the elbow if needed as well. Follow-up: 10-[address] Barber Let us know right away if you develop any redness, drainage, fevers, chest pain, or trouble breathing. Do not drink alcohol or drive for at least 24 hours after anesthesia. Please call the office during business hours with any questions or concerns. Stand Alone Forms: Anesthesia Discharge Inst., Timbo.Nerve Block Instructions, hCika Almendarez ([facility]) Referrals: Ronald Barber MD [ [facility]IC[facility]] - 07/31/24 11:15 am Discharge Orders Discharge Orders: Discharge Order (Routine); Ordered 07/20/24 Ordered By: Mary Morley DS: Diagnosis Discharge Diagnosis (1) Colles' fracture of right radius: Status: Acute (2) Fracture of right ulna: Status: Acute
--- NOTE | 2024-07-20 13:02 | W.ORTHOCONSU ---
Date of service: 07/20/24 Time of Service: 13:02 Assessment and Plan Assessment and plan (1) Fracture of right ulna: Status: Acute (2) Colles' fracture of right radius: Status: Acute Assessment and plan: 58-year-old female with dorsally angulated displaced distal radius and distal ulnar fractures. Distal radius fracture was closed reduced in the emergency room under hematoma block with about 80% correction. Fracture remains displaced extra-articular early with nondisplaced intra-articular extension with moderate dorsal angulation. Reviewed options for surgery versus closed reduction with me in the operating room. Has been complaining of pain, uncomfortable plaster splint dispatch about the elbow. Finger motion and thumb intact. Sensory complete intact without paresthesias. Negative medical history. [id number]. Traveling RN. Morbid obesity. Reviewed reasonably good chance successful closed reduction and maintenance of this reduction with appropriate splinting with transition to cast or functional bracing. Also reviewed potential for redisplacement shortening dorsal angulation and surgery, or surgery if the intra-articular extension displaces as well. Decision to proceed with surgery today right wrist/distal radius closed reduction with manipulation under anesthesia The risks, benefits, and alternatives were thoroughly discussed. Patient was counseled regarding pain management, expected postoperative course, and recovery timeline. All questions were answered. Informed consent was obtained. Agree and understand treatment plan. Follow up 10-14 days after surgery. Will call if any changes or concerns. Breathing comfortably on room air. No coughs or wheezes. 2+ left radial pulse. Regular rate and rhythm. PFSH All Active Problems (Updated 07/19/24 @ 12:41 by Yordy Caldwell) Fracture of right ulna (Acute) Colles' fracture of right radius (Acute) Medical History (Updated 07/19/24 @ 12:41 by Yordy Caldwell) High cholesterol Depression with anxiety GERD (gastroesophageal reflux disease) Surgical History (Updated 07/19/24 @ 12:41 by Yordy Caldwell) Hx of gastric bypass Hx of hysterectomy Social History Smoking/Tobacco Use Status: Never Smoking risk assessment performed?: Yes Alcohol Intake: current Alcohol Intake frequency: a few times a month Drug use: Occasionally Substance use type: marijuana Housing: house Do you feel safe at home: Yes Do you feel safe in your relationship?: Yes
--- NOTE | 2024-07-20 13:05 | W.PM.OP ---
Operative Note Operative Note PRE-OP DIAGNOSIS: Displaced right distal radius fracture and ulnar styloid fracture POST-OP DIAGNOSIS: same PROCEDURE: Right distal radius closed reduction with manipulation, CPT #55453 SURGEON: Ronald Barber ANESTHESIA TYPE: General LMA/ETT and Primary Nerve Block Refer to Anesthesia Record COMPLICATIONS: None Patient was transported to: PACU Patient's condition: stable Indications: Please see complete medical record for details. Findings: No visible intra-articular fracture extension. Readily reducible extra-articular component distal radius fracture that was stable after reduction. Large soft tissue envelope especially about the proximal forearm and distal arm/elbow. Procedure Description: In the operating room, general anesthesia was induced. The patient was positioned supine on the stretcher. Preoperative antibiotics were omitted. The correct patient, procedure, and side of the procedure were all verified prior to beginning. The right forearm sugar-tong splint was removed. Unfortunately, it became clear why the patient had significant splint discomfort since leaving the emergency room. The plaster was not really padded it essentially wrinkled and placing pressure on her skin in numerous areas with stockinette and maybe a single layer of soft roll between the thin plaster and her soft tissues. Fortunately, there was no skin breakdown. Despite morbid obesity, her wrist size was only a large with most of her soft tissues more proximal forearm and arm. Compartments were soft. Brisk cap refill throughout. The single gas cutting machine operator remover was used with gentle traction, slight exaggeration of deformity and then it direct manipulation volar and flexion with some ulnar deviation to correct the dorsal tilt and ensure appropriate radial height and inclination. C arm images confirmed excellent reduction. There was no visible intra-articular fracture. The extra-articular alignment was nearly anatomic. An appropriately molded and padded plaster sugar-tong splint was then applied 3 point molded until hard and final images confirmed maintained reduction in splint. The fracture itself did not want to move after being reduced and prior to splinting. Although well-padded, the significant arm soft tissues will likely cause some issues at the sugar-tong component about the elbow. It will be padded if needed and attempt to be maintained for about 10 days until transition to cast or functional brace. Given the stability and good reduction, seems unlikely to redisplace significantly requiring ORIF. The patient awoke from anesthesia without complication and was transferred to the recovery room in a stable condition. Date of Procedure: 07/20/24
[2024-07-20] MEDS: Lactated Ringers 1,000 ML 30 ML IV (13:26)
--- NOTE | 2024-07-20 13:33 | W.ANESPRE ---
General Info Date of Service Date Performed: 07/20/24 Height: 5 ft 9 in Weight: 133.3 kg Body Mass Index (BMI): 43.4 Surgical Procedure: Operation Date: 07/20/24 14:10 Proposed Procedure Side Surgeon p Closed Reduction Distal Radius, Manipulation Under Anesthesia Right Ronald Barber MD Meds Allergies and Home Medications Allergies Allergy/AdvReac Type Severity Reaction Status Date / Time No Known Allergies Allergy Verified 07/20/24 13:05 Home Medication ?Medication ?Instructions ?Recorded B-complex with vitamin C 1 tab PO DAILY 02/05/24 omeprazole 40 mg capsule,delayed 40 mg PO DAILY 02/05/24 release oxcarbazepine 300 mg tablet 300 mg PO ONCE 02/05/24 (Trileptal) sertraline 100 mg tablet (Zoloft) 100 mg PO DAILY 02/05/24 zinc 10 mg tablet 10 mg PO DAILY 02/05/24 calcium 600 mg (as 1 cap PO DAILY 07/18/24 carbonate)-vitamin D3 12.5 mcg (500 unit) capsule (Calcium with Vit D3) cholecalciferol (vitamin D3) 50 50 mcg PO DAILY 07/18/24 mcg (2,000 unit) tablet (Vitamin D3) multivitamin,[id number] 1 tab PO DAILY 07/18/24 potassium 99 mg tablet 99 mg PO DAILY 07/18/24 atorvastatin 40 mg tablet 40 mg PO DAILY 07/20/24 Current Visit Medications: Current Medications Generic Name Dose Route Start Last Admin Trade Name Freq PRN Reason Stop Dose Admin Ringer's Solution 1,000 mls @ 30 mls/hr 07/20/24 06:00 07/20/24 13:26 IV 07/20/24 23:59 30 mls/hr INFUSION BURKE Administration IV Miscellaneous Supplies 1 each 07/20/24 06:00 Iv Access IV 07/20/24 23:59 DIRECTED BURKE Oxycodone HCl 0 mg 07/20/24 07:22 Oxycodone 5 Mg Tab PO 08/19/24 07:21 Q3H PRN PRN Pain Sodium Chloride 0 ml 07/20/24 06:00 Normal Saline Flush 10 Ml Syr IV 07/20/24 23:59 PRN PRN Sodium Chloride 0 ml 07/20/24 06:00 Normal Saline 10 Ml Vial IJ 07/20/24 23:59 DIRECTED PRN Sterile Water 0 ml 07/20/24 06:00 Water,Injection,Sterile 10 Ml Vial IJ 07/20/24 23:59 DIRECTED PRN PFSH Active Problems Active Problems: Problem Status Onset Code Fracture of right ulna Acute S52.201A Colles' fracture of right radius Acute S52.531A Medical History Medical History High cholesterol Depression with anxiety GERD (gastroesophageal reflux disease) Surgical History Surgical History Hx of gastric bypass Hx of hysterectomy Tobacco Smoking/Tobacco Use Status: Never Alcohol Alcohol Intake: current Alcohol intake frequency: a few times a month Substance Use Substance use: Occasionally Substance use type: marijuana Vital Signs and Lab Results Vital Signs Most Recent Vital Signs in EMR: Most Recent Vital Signs Temp Pulse Resp BP Pulse Ox 37.1 C 66 16 121/80 97 07/20/24 13:01 07/20/24 13:01 07/20/24 13:01 07/20/24 13:01 07/20/24 13:01 Lab Results Blood Type / Crossmatch: No Data to Display Complete Blood Count: No Data to Display Complete Metabolic Panel: No Data to Display Liver Function Panel: No Data to Display Coagulation Panel: No Data to Display Cardiac Panel: No Data to Display Arterial Blood Gas: No Data to Display Venous Blood Gas: No Data to Display Pancreas Panel: No Data to Display Thyroid Panel: No Data to Display Infectious Disease: No Data to Display Blood Cultures: No Data to Display Toxicology Panel: No Data to Display Anesthesia Assessment and Plan Anesthesia History Personal History: No History of Anesthesia Complications Family History: No Family History of Anesthesia Complications Exercise Tolerance Exercise Tolerance: Metabolic Equivalents>4 Pertinent Negatives Pertinent Negatives: No Symptoms of GERD Cardiac & Pulmonary Exam Cardiac Exam: Normal S1/S2 Heart Sounds Pulmonary Exam: Clear Bilateral Breath Sounds Implantable Cardiac Device Does patient have a Pacemaker or an ICD?: No Airway Exam Known Difficult Airway: No Mallampati Class: 2 Mouth Opening: Normal (> 3cm) Thyromental Distance: Greater than 3 cm Neck Range of Motion: Full ROM Neck Circumference: Normal Teeth Condition: Normal Dentition ASA Classification ASA Score: ASA 2 Emergency Case?: No NPO Status NPO Status: NPO Clears >2 hours, Solids >8 hours Anesthesia Plan Resuscitation Status: Full Code Anesthesia Technique: General Anesthesia Airway Planned: LMA Monitors Used: Standard Monitors and SedLine
--- NOTE | 2024-07-20 13:45 | DI.RAD_ITS ---
Exam(s) XR WRIST RT LIMITED EXAM: XR WRIST RT LIMITED CLINICAL HISTORY: RIGHT WRIST FRACTURE. TECHNIQUE: 2D digital imaging was performed. COMPARISON: CR,XR XR FOREARM RT from 07/18/2024 FINDINGS: Fluoroscopy was provided during close reduction right wrist fracture.. See procedure report for deta ils. Post reduction images reveal significant improved alignment in the fracture fragments of the di stal radius and ulna. Total fluoroscopy time 5 seconds IMPRESSION: Radiation exposure index/cumulative dose:Ka,r= 0.1210mGy DATA REPOSITORY: RADIATION DOSE DELIVERED:
--- NOTE | 2024-07-20 15:12 | W.ANESPOSTOP ---
Postoperative Evaluation Date, Time and Location Date Performed: 07/20/24 Time Performed: 15:12 Patient Location: PACU Vital Signs Most Recent Imported Vital Signs: Most Recent Vital Signs Temp Pulse Resp BP Pulse Ox 36.5 C 64 16 97/37 L 96 07/20/24 15:05 07/20/24 15:05 07/20/24 15:05 07/20/24 15:01 07/20/24 15:05 Pain Score Most Recent Pain Score: Most Recent Pain Score Pain Level 1 07/20/24 15:05 Assessment Mental Status: Awake (Alert & Oriented to Patient Baseline) Airway and Respiratory Function: Patent airway with normal (patient baseline) respiratory exam Cardiovascular Function: Hemodynamically Stable Hydration Status: Adequately Hydrated Nausea & Vomiting: No Nausea or Vomiting Pain: Pain is tolerable per patient Peripheral Nerve Block: Regional nerve block not resolved at time of post operative discharge
--- NOTE | 2024-07-20 15:26 | ANES.NERVE_ITS ---
Nerve Block Single Injection Procedure Date and Time Date Performed: 07/20/24 Procedure Start: 14:10 Location Where Procedure Performed Procedure Location: Day Surgery Unit Reason Performed: Postoperative Analgesia Requesting Provider: Waylon Solano Timeout Performed Timeout Performed: Yes Monitoring Used ECG, Blood Pressure, SpO2, ETCO2 and See EMR for corresponding vital signs Sterility Sterility: Hand Hygiene, Surgical Cap, Surgical Mask, Sterile Gloves, Eye Protection and Chlorhexidine Sedation Given During Procedure Sedation Given (Indicate Dose Given): Versed IV Dose:: 3mg IVP Patient Mental Status Patient Mental Status: Sedate with meaningful communication Nerve Block 1st Nerve Block: Laterality: Right Block Type: Superficial Cervical Plexus Ultrasound Image Saved?: Yes Needle / Catheter Used: 100mm SonoPlex II Local Anesthetic Bolus (Indicate Dose Given): Lidocaine used for local infiltration of skin, Injected in 3-5ml increments after negative blood aspiration and Bupivacaine 0.5% Dose:: 0.5%/25cc (125mg) Additives (Indicate Dose Given): Epinephrine to make 1:200,000 (5mcg/ml) Dose:: 125mcg and Decadron Dose:: 10mg PF Ultrasound: Sterile probe cover and gel used Nerve Stimulator: Supplement to Ultrasound use and No twitch or parast hesia noted < 0.5 mA Paresthesia: None Procedure Tolerated: No Complications and Patient tolerated well Procedure Outcome: Successful Performed By: Waylon Solano
== END 2024-07-20 16:30 | disposition home or self-care (01) ==
PROVIDERS: Visit Provider Student in an Organized Health Care Education/Training Program
PROC: (CPT 25605; principal; 2024-07-20 14:00)
DX: S52.201A Unspecified fracture of shaft of right ulna, initial encounter for closed fracture (principal); S52.531A Colles' fracture of right radius, initial encounter for closed fracture; W00.0XXA Fall on same level due to ice and snow, initial encounter; G89.18 Other acute postprocedural pain
CPT/HCPCS: 25605; 64450; 76000; 76942; 73100; J0131; J0171; J0665; J1100; J1885; J2003; J2250; J2405; J2704

== ENCOUNTER 2024-07-31 14:18 | Outpatient (CLI) | payer OTHER, SELFPAY ==
--- NOTE | 2024-07-31 11:15 | DI.RAD_ITS ---
Exam(s) XR WRIST RT LIMITED EXAM: XR WRIST RT LIMITED CLINICAL HISTORY: F/U FRACTURE. TECHNIQUE: 2D digital imaging was performed. Three views. COMPARISON: CR,XR XR WRIST RT COMPLETE from 07/18/2024 FINDINGS: BONES: Stable alignment comminuted intra-articular fracture of the distal radius. No new abnormaliti es. No bony destructive lesion is seen. JOINTS: The carpal bones are normally aligned. SOFT TISSUE: Normal. IMPRESSION: Stable alignment of the distal radius fracture. DATA REPOSITORY: RADIATION DOSE DELIVERED:
== END 2024-07-31 14:19 | disposition home or self-care (01) ==
LOC: DIORS 14:22
PROVIDERS: Visit Provider Student in an Organized Health Care Education/Training Program
DX: S52.531D Colles' fracture of right radius, subsequent encounter for closed fracture with routine healing; X58.XXXD Exposure to other specified factors, subsequent encounter
CPT/HCPCS: 73100